=== PATIENT | male | born 1945 | race Caucasian/White ===

== ENCOUNTER → 2020-04-24 | Outpatient (CLI) | payer MEDICARE ==
[~2020-04-24] MED LIST: AMLO2.5T5 PO; ATEN50TA41 PO; ATOR20TA37 PO; CHOL10003 PO; CYAN100028 PO; DABI150C PO; ESCI10TA PO; LEVO125T5 PO; LOSA100T14 PO; PANT40TA6 PO; SILD20TA PO; TERA10CA3 PO
[2020-04-24 10:43] LABS: BASOPHILS % (AUTO) 1 % (0-1); EOSINOPHILS % (AUTO) 4 % (1-7); LYMPHOCYTES % (AUTO) 24 % (22-44); MEAN CORPUSCULAR HEMOGLOBIN 35.2 pg (27.5-34.5); MEAN CORPUSCULAR HGB CONC 33.7 g/dL (33.2-36.2); MEAN PLATELET VOLUME 8.2 fL (7.4-10.4); MONOCYTES % (AUTO) 16 % (2-9); NEUTROPHILS % (AUTO) 55 % (42-75); PLATELET COUNT 144 x10^3/uL (130-400); RED BLOOD COUNT 4.06 x10^6/uL (4.38-5.82)
[2020-04-24 10:52] LABS: INTERNATIONAL NORMALIZED RATIO 1.24 (0.93-1.1); PROTHROMBIN TIME 13.1 Seconds (9.6-11.5)
[2020-04-24 10:54] LABS: ALANINE AMINOTRANSFERASE 20 U/L (12-78); ALBUMIN 3.7 g/dL (3.4-5.0); ANION GAP 5 mmol/L (5-15); CALCIUM 8.8 mg/dL (8.5-10.1); CHLORIDE 106 mmol/L (98-107); CREATININE 0.83 mg/dL (0.7-1.3)
[2020-04-24 10:57] LABS: ALKALINE PHOSPHATASE 59 U/L (45-117); BILIRUBIN,TOTAL 0.9 mg/dL (0.2-1.0); TOTAL PROTEIN 7.6 g/dL (6.4-8.2)
[2020-04-24 11:08] LABS: MD SCAN
== END | disposition home or self-care (01) ==
LOC: STAR 09:26
PROVIDERS: ATTEND Orthopaedic Surgery
DX: Z01.818 Encounter for other preprocedural examination (principal); M17.12 Unilateral primary osteoarthritis, left knee; M25.562 Pain in left knee; I48.91 Unspecified atrial fibrillation; I49.3 Ventricular premature depolarization; Z20.828 Contact with and (suspected) exposure to other viral communicable diseases; Z79.01 Long term (current) use of anticoagulants
CPT/HCPCS: 36415; 80053; 83036; 85025; 85610; 85730; 87081; 87635; 87806; 93005; G0475

== ENCOUNTER 2020-04-29 08:06 | Observation (INO) | payer MEDICARE ==
[~2020-04-29] VITALS: Ht 182.9 cm; Wt 81.9 kg
[2020-04-29] MEDS ORDERED: ACETAMINOPHEN 500 MG TABLET PO ONE (09:30)
[2020-04-29] MEDS ORDERED: GABAPENTIN 300 MG CAPSULE PO ONE (09:30)
[2020-04-29] MEDS ORDERED: CHLORHEXIDINE 15 ML UDC MM ONE (09:30)
[2020-04-29] MEDS: LACTATED RINGERS 1,000 ML IV SCH ×2 (09:54→09:57)
[2020-04-29] MEDS ORDERED: FENTANYL PF 250 MCG/5ML ONE (10:44)
[2020-04-29] MEDS ORDERED: ONDANSETRON 4 MG TABLET PO PRN (11:00)
[2020-04-29] MEDS ORDERED: ONDANSETRON 2MG/ML, 2ML IVPush PRN (11:00)
[2020-04-29] MEDS ORDERED: TRANEXAMIC ACID 1,000 MG in SODIUM CHLORIDE 0.9% 100 ML IVPB ONE (11:00)
[2020-04-29] MEDS ORDERED: DEXAMETHASONE 4 MG/ML, 1ML IVPush SCH (11:00)
[2020-04-29] MEDS ORDERED: CEFAZOLIN PMX 1GM/50ML 50 ML IVPB SCH (11:00)
[2020-04-29] MEDS ORDERED: HYDROmorphone 1 MG/ML, 1ML INJ IVPush PRN (11:00)
[2020-04-29] MEDS ORDERED: ALUMINUM/MAG/SIMETHICONE 30 ML UDC PO PRN (11:00)
[2020-04-29] MEDS ORDERED: SENNA/DOCUSATE TABLET PO PRN (11:00)
[2020-04-29] MEDS ORDERED: DIPHENHYDRAMINE 50 MG CAPSULE PO PRN (11:00)
[2020-04-29] MEDS ORDERED: ACETAMINOPHEN 650 MG/20.3 ML UDC PO PRN (11:00)
[2020-04-29] MEDS ORDERED: POLYETHYLENE GLYCOL 17 GM PACKET PO PRN (11:00)
[2020-04-29] MEDS ORDERED: PSYLLIUM PACKET PO PRN (11:00)
[2020-04-29] MEDS ORDERED: OXYcodone IR 5MG TABLET PO PRN (11:00)
[2020-04-29] MEDS ORDERED: EPINEPHRINE 1 MG/ML, 1ML ONE (11:08)
[2020-04-29] MEDS ORDERED: TRANEXAMIC ACID 100 MG/ML, 10ML ONE (11:08)
[2020-04-29] MEDS ORDERED: KETOROLAC 60 MG/2 ML ONE (11:08)
[2020-04-29] MEDS ORDERED: VANCOMYCIN 1,000 MG ONE (11:08)
[2020-04-29] MEDS ORDERED: ROPIvacaine/PF 0.2% , 100 ML INFIL ONE (13:11)
[2020-04-29] MEDS ORDERED: hydrALAzine 20 MG/ML, 1ML IV PRN (13:30)
[2020-04-29] MEDS ORDERED: ACETAMINOPHEN 325 MG TABLET PO PRN (13:30)
[2020-04-29] MEDS ORDERED: FENTANYL PF 100 MCG/2ML IV PRN (13:30)
[2020-04-29] MEDS ORDERED: LABETALOL 5MG/ML, 20ML IV PRN (13:30)
[2020-04-29] MEDS ORDERED: OXYcodone 5 MG/5 ML ORAL.SOL UDC PO PRN (13:30)
[2020-04-29] MEDS ORDERED: CEFAZOLIN 1,000 MG ONE (13:43)
[2020-04-29] MEDS ORDERED: DEXAMETHASONE 4 MG/ML, 1ML ONE (13:43)
[2020-04-29] MEDS ORDERED: PROPOFOL 10 MG/ML, 20ML ONE (13:43)
[2020-04-29] MEDS ORDERED: ONDANSETRON 2MG/ML, 2ML ONE (13:43)
[2020-04-29] MEDS ORDERED: OXYcodone 5 MG/5 ML ORAL.SOL UDC ONE (14:27)
[2020-04-29] MEDS: POTASSIUM CHLORIDE 20 MEQ in D5%-0.45% NACL 1,000 ML IV SCH (18:12)
[2020-04-29] MEDS: KETOROLAC 30 MG/1 ML IV SCH (19:10)
[2020-04-29 19:35] VITALS: BP 151/97
[2020-04-29] MEDS: SILDENAFIL 20 MG TABLET PO SCH (19:43)
[2020-04-29] MEDS: CEFAZOLIN PMX 1GM/50ML 50 ML IVPB SCH (19:43)
[2020-04-29] MEDS: DOCUSATE 100 MG CAPSULE PO SCH (19:43)
[2020-04-29] MEDS ORDERED: TERAZOSIN 5MG CAPSULE PO SCH (21:00)
[2020-04-29] MEDS ORDERED: ATENOLOL 50 MG TABLET PO SCH (21:00)
[2020-04-29] MEDS ORDERED: ATORVASTATIN 20 MG TABLET PO SCH (21:00)
[2020-04-29] MEDS ORDERED: DABIGATRAN 150 MG CAPSULE PO SCH (21:00)
[2020-04-30] MEDS: KETOROLAC 30 MG/1 ML IV SCH ×2 (03:23→11:00)
[2020-04-30 03:25] VITALS: BP 153/86
[2020-04-30] MEDS: POTASSIUM CHLORIDE 20 MEQ in D5%-0.45% NACL 1,000 ML IV SCH (04:06)
[2020-04-30] MEDS: CEFAZOLIN PMX 1GM/50ML 50 ML IVPB SCH (05:21)
[2020-04-30] MEDS ORDERED: DABIGATRAN 150 MG CAPSULE PO SCH (06:00)
[2020-04-30] MEDS ORDERED: DEXAMETHASONE 4 MG/ML, 1ML IVPush ONE (06:00)
[2020-04-30] MEDS ORDERED: PANTOPRAZOLE 40MG TABLET PO SCH (06:00)
[2020-04-30] MEDS ORDERED: LEVOTHYROXINE 125 MCG TABLET PO SCH (06:00)
[2020-04-30 07:05] VITALS: BP 119/70
[2020-04-30] MEDS ORDERED: LEVOTHYROXINE 50 MCG TABLET ONE (08:42)
[2020-04-30] MEDS: DOCUSATE 100 MG CAPSULE PO SCH (08:49)
[2020-04-30] MEDS: SILDENAFIL 20 MG TABLET PO SCH (08:50)
[2020-04-30] MEDS ORDERED: AMLODIPINE 2.5 MG TABLET PO SCH (09:00)
[2020-04-30] MEDS ORDERED: TAMSULOSIN 0.4 MG CAP.ER.24H PO SCH (09:00)
[2020-04-30] MEDS ORDERED: LOSARTAN 100 MG TAB PO SCH (09:00)
[2020-04-30] MEDS ORDERED: ESCITALOPRAM 10MG TABLET PO SCH (09:00)
[2020-04-30 11:00] VITALS: BP 95/55
[2020-04-30 11:30] VITALS: BP 85/63
[2020-04-30 11:32] VITALS: BP 80/56
== END 2020-04-30 13:00 | disposition home or self-care (01) ==
LOC: OUT 08:06 → ORIP 10:40 → 3WST 15:47 → DCLOUNGE 04-30 12:40
PROVIDERS: ADMIT Orthopaedic Surgery; ATTEND Orthopaedic Surgery
DX: M17.12 Unilateral primary osteoarthritis, left knee (principal); M21.00 Valgus deformity, not elsewhere classified, unspecified site; M71.20 Synovial cyst of popliteal space [Baker], unspecified knee; I48.91 Unspecified atrial fibrillation; I10 Essential (primary) hypertension; E78.5 Hyperlipidemia, unspecified; F32.9 Major depressive disorder, single episode, unspecified; E03.9 Hypothyroidism, unspecified; K21.9 Gastro-esophageal reflux disease without esophagitis; N40.0 Benign prostatic hyperplasia without lower urinary tract symptoms; J45.909 Unspecified asthma, uncomplicated; G47.33 Obstructive sleep apnea (adult) (pediatric); F03.90 Unspecified dementia, unspecified severity, without behavioral disturbance, psychotic disturbance, mood disturbance, and anxiety; Z87.891 Personal history of nicotine dependence; Z86.73 Personal history of transient ischemic attack (TIA), and cerebral infarction without residual deficits; Z79.899 Other long term (current) drug therapy
CPT/HCPCS: 27447; 36415; 73560; 85014; 85018; 96361; 96365; 96366; 96375; 96376; 97110; 97161; C1713; C1776; G0378; J0171; J0690; J1100; J1885; J2405; J2704; J2795; J3010; J3480; J7120; J3370